=== PATIENT | male | born 1990 | race Hispanic/Latino ===

== ENCOUNTER 2017-09-21 02:49 | Emergency (ER) | payer SELFPAY ==
[~2017-09-21] VITALS: Ht 165.1 cm; Wt 100.0 kg
[2017-09-21] MEDS ORDERED: KEFLEX500 M1 PO (03:21)
[2017-09-21 04:01] VITALS: BP 128/79
== END 2017-09-21 04:00 | disposition home or self-care (01) | DRG 605 ==
LOC: ED 02:49
DX: S61.012A Laceration without foreign body of left thumb without damage to nail, initial encounter (principal); W31.2XXA Contact with powered woodworking and forming machines, initial encounter; Y93.89 Activity, other specified; Y92.008 Other place in unspecified non-institutional (private) residence as the place of occurrence of the external cause

== ENCOUNTER 2017-12-06 16:43 | Emergency (ER) | payer SELFPAY ==
[~2017-12-06] VITALS: Ht 165.1 cm; Wt 102.0 kg
[~2017-12-06 16:43] MED LIST: KEFLEX500 M1 PO
[2017-12-06 17:06] VITALS: BP 170/99
[2017-12-06 17:31] LABS: HEMATOCRIT 47.2 % (39.0-50.0); HEMOGLOBIN 16.5 g/dl (14.0-18.0); IMMATURE GRANULOCYTES 0.4 % (0.0-1.0); MEAN CELL VOLUME 89.9 fL CALC (80.0-100.0); MEAN CORPUSCULAR HGB 31.4 pG CALC (26.0-32.0); NEUT# 4.3 thou/uL (1.82-7.42); RED BLOOD COUNT 5.25 mill/uL (4.70-6.10); RED CELL DISTRI WIDTH 12.4 % (11.5-15.5)
[2017-12-06 17:52] LABS: ALBUMIN 5.1 g/dL (3.2-5.0); ALKALINE PHOSPHATASE 92 u/l (38-126); ANION GAP 22 (6-22 (CALC)); BILIRUBIN, TOTAL 1.1 mg/dL (0.0-1.4); BUN 16 mg/dL (9-20); BUN/CREATININE RATIO 18 (12-20 (CALC)); CARBON DIOXIDE 23 mmol/l (22-30); CHLORIDE 103 mmol/l (95-108); CREATININE 0.9 mg/dL (0.7-1.3); GFR > 60 ML/MIN (>=60 (CALC)); GFR FOR AFR.AMER. > 60 ML/MIN (>=60 (CALC)); LIPASE 190 u/l (23-300); POTASSIUM 4.4 mmol/l (3.5-5.1); SGOT/AST 58 u/l (17-59); SGPT/ALT 76 u/l (21-72); SODIUM 144 mmol/l (137-146); TOTAL PROTEIN 8.4 g/dL (6.3-8.2)
[2017-12-06 18:10] LABS: URINE BILIRUBIN - DIPSTICK NEGATIVE (NEGATIVE); URINE BLOOD DIPSTICK LARGE (NEGATIVE); URINE COLOR YELLOW; URINE GLUCOSE - DIPSTICK NEGATIVE (NEGATIVE); URINE KETONE TRACE mg/dL (NEGATIVE); URINE LEUK ESTERASE NEGATIVE (NEGATIVE); URINE NITRITE - DIPSTICK NEGATIVE (Negative); URINE PH 5.5 (4.5-8.0); URINE PROTEIN - DIPSTICK TRACE mg/dL (NEG-TRACE); URINE SPECIFIC GRAVITY >=1.030; URINE UROBILINOGEN - DIPSTICK 0.2 E.U./dL (0.2)
[2017-12-06 18:11] LABS: URINE CLARITY CLOUDY
[2017-12-06] MEDS ORDERED: MOTRIN400 MG PO (18:14)
[2017-12-06] MEDS ORDERED: CEPHALEXIN500 M1 PO (18:14)
[2017-12-06 18:20] LABS: URINE CALCIUM OXALATE CRYSTALS FEW lpf; URINE RBC TNTC RBC/hpf (0-5); URINE SQUAMOUS EPITHELIAL CELL FEW EPI/hpf (0-FEW)
[2017-12-06 18:21] LABS: URINE AMORPH SEDIMENT MANY hpf (NONE-FER)
[2017-12-07] MEDS ORDERED: ONDANSETRON4 MG PO (07:09)
[2017-12-07] MEDS ORDERED: OXYCODONE5 MG PO (07:09)
== END 2017-12-06 19:02 | disposition home or self-care (01) | DRG 694 ==
LOC: ED 16:43
PROVIDERS: Family Medicine
DX: N20.0 Calculus of kidney (principal)

== ENCOUNTER 2017-12-07 06:41 | Emergency (ER) | payer SELFPAY ==
[~2017-12-07] VITALS: Ht 165.1 cm; Wt 90.0 kg
[~2017-12-07 06:41] MED LIST changes: +CEPHALEXIN500 M1 PO; +MOTRIN400 MG PO
[2017-12-07] MEDS ORDERED: OXYCODONE5 MG PO (07:09)
[2017-12-07] MEDS ORDERED: ONDANSETRON4 MG PO (07:09)
[2017-12-07 07:44] VITALS: BP 135/77
== END 2017-12-07 07:44 | disposition home or self-care (01) | DRG 694 ==
LOC: ED 06:41
DX: N20.0 Calculus of kidney (principal); Z87.442 Personal history of urinary calculi; R10.32 Left lower quadrant pain; R10.9 Unspecified abdominal pain